=== PATIENT | male | born 1970 | race Caucasian/White ===

== ENCOUNTER 2017-05-28 22:18 | Emergency (ER) | payer BC ==
[2017-05-28 22:32] VITALS: BP 163/110
[2017-05-28] MEDS ORDERED: Sodium Chloride 0.9% 1,000 ML IV ONE (23:02)
[2017-05-28] MEDS ORDERED: Ondansetron 4 MG/2 ML SDV IVPUSH ONE (23:02)
[2017-05-28] MEDS ORDERED: Haloperidol Lactate 5 MG/ML SDV IM ONE (23:02)
[2017-05-28] MEDS ORDERED: diphenhydrAMINE 50 MG/ML SDV IVPUSH ONE (23:02)
--- NOTE | 2017-05-29 00:14 | EDM.PDOC ---
ED HPI GENERAL MEDICAL PROBLEM - General Chief Complaint: Headache Stated Complaint: MIGRAINE Time Seen by Provider: 05/28/17 22:35 Source of Information: Reports: Patient, RN Notes Reviewed History Limitations: Reports: No Limitations - History of Present Illness INITIAL COMMENTS - FREE TEXT/NARRATIVE: The patient states that he developed a headache, felt primarily at the right- sided base of his posterior skull, this morning. It is sharp in character. He has had nausea and dry heaves. No visual changes, but he does have photophobia. No phonophobia. No neurologic changes, such as tingling, numbness, weakness, or speech difficulty. The patient reports that he has had neck pain for years, and feels that the neck pain is somehow triggering his headache. The patient reports similar headaches in the past, perhaps 4 or 5 over the past 6 years. He has not been prescribed any long-term treatments, and did not attempt any home remedies or treatments today. He states that he has been expressing symptoms of lightheadedness and a tingling face for more than 2 months. His PCP, Ebony Garcia, felt that he was suffering from anxiety, therefore prescribed Lexapro a couple of months ago, but he only started taking it yesterday. A MRI/MRA of the head a few weeks ago was negative, according to the patient. Headache Pain Score (Numeric/FACES): 9 - Related Data Allergies Allergy/AdvReac Type Severity Reaction Status Date / Time grain dust Allergy Sneezing Uncoded 05/28/17 22:27 seasonal Allergy Sneezing Uncoded 05/28/17 22:27 Home Meds: Home Meds Omeprazole 40 mg PO DAILY 01/06/16 [History] Escitalopram [Lexapro] 10 mg PO DAILY 05/28/17 [History] Rizatriptan Benzoate [Rizatriptan] 10 mg PO Q2H PRN #3 tab.rapdis 05/29/17 [Rx] Past Medical History Gastrointestinal History: Reports: GERD, Irritable Bowel Syndrome (chronic diarrhea) Musculoskeletal History: Reports: Neck Pain, Chronic Neurological History: Reports: Headaches, Chronic Psychiatric History: Reports: Anxiety, Depression - Past Surgical History HEENT Surgical History: Reports: Oral Surgery ([place] teeth extraction) Neurological Surgical History: Reports: Lumbar Spine (fusion) Social & Family History - Tobacco Use Smoking Status *Q: Current Every Day Smoker Tobacco Use Within Last Twelve Months: Other (See Below) (Chews 1 can/day x 40 years, now down to 1/3 can/day) Years of Tobacco use: 5 Packs/Tins Daily: 1 - Alcohol Use Alcohol Use History: Yes Alcohol Use Frequency: Socially - Recreational Drug Use Recreational Drug Use: No - Living Situation & Occupation Living situation: Reports: Single, Alone Occupation: Employed ([employer]) ED ROS GENERAL - Review of Systems Review Of Systems: See Below Constitutional: Reports: No Symptoms HEENT: Reports: No Symptoms Respiratory: Reports: No Symptoms Cardiovascular: Reports: No Symptoms Endocrine: Reports: No Symptoms GI/Abdominal: Reports: Diarrhea (chronic) : Reports: No Symptoms Musculoskeletal: Reports: No Symptoms Skin: Reports: No Symptoms Neurological: Reports: Dizziness (lightheadedness) Psychiatric: Reports: No Symptoms Hematologic/Lymphatic: Reports: No Symptoms Immunologic: Reports: No Symptoms - Physical Exam Exam: See Below Exam Limited By: No Limitations General Appearance: Alert, WD/WN, Mild Distress (appears uncomfortable) Eye Exam: Bilateral Eye: EOMI, Normal Inspection, PERRL Ears: Normal External Exam, Hearing Grossly Normal Nose: Normal Inspection, No Blood Throat/Mouth: Normal Inspection, Normal Lips, Normal Voice, No Airway Compromise Head Exam: Atraumatic, Normocephalic Neck: Normal Inspection, Full Range of Motion, Limited Range of Motion Respiratory/Chest: No Respiratory Distress, Lungs Clear, Normal Breath Sounds, No Accessory Muscle Use Cardiovascular: Normal Peripheral Pulses, Regular Rate, Rhythm, No Gallop, No JVD, No Murmur, No Rub GI/Abdominal: Normal Bowel Sounds, Soft, Non-Tender, No Organomegaly, No Distention, No Abnormal Bruit, No Mass (Male) Exam: Deferred Rectal (Males) Exam: Deferred Neuro Exam (Abbreviated): Alert, Oriented, CN II-XII Intact, Normal Cognition, No Motor/Sensory Deficits Back Exam: Normal Inspection, Full Range of Motion, NT Extremities: Normal Inspection, Normal Range of Motion, No Pedal Edema, Normal Capillary Refill Psychiatric: Normal Affect Skin Exam: Warm, Dry, Intact, Normal Color, No Rash Course - Vital Signs Last Recorded V/S: Last Vital Signs Temp 36.1 C 05/28/17 22:30 Pulse 70 05/28/17 22:30 Resp 16 05/28/17 22:30 BP 163/110 H 05/28/17 22:30 Pulse Ox 97 05/28/17 22:30 - Orders/Labs/Meds Meds: Medications Discontinued Medications Generic Name Dose Route Start Last Admin Trade Name Irais PRN Reason Stop Dose Admin Diphenhydramine HCl 50 mg 05/28/17 23:02 05/28/17 23:16 Benadryl IVPUSH 05/28/17 23:03 50 mg ONETIME ONE Administration Haloperidol Lactate 5 mg 05/28/17 23:02 05/28/17 23:29 Haldol IM 05/28/17 23:03 5 mg ONETIME ONE Administration Sodium Chloride 1,000 mls @ 999 mls/hr 05/28/17 23:02 05/28/17 23:14 Normal Saline IV 05/29/17 00:02 999 mls/hr ONETIME ONE Administration Ondansetron HCl 4 mg 05/28/17 23:02 05/28/17 23:14 Zofran IVPUSH 05/28/17 23:03 4 mg ONETIME ONE Administration - Re-Assessments/Exams Free Text/Narrative Re-Assessment/Exam: 05/29/17 00:07 The patient states that his headache has significantly improved following IM Haldol, down to a "4" from a "9". This strongly suggests that his headache was migrainous in etiology. I will discharge him home with an e-prescription for Maxalt. If this medicine works, he can get an additional prescription per his PCP. In addition, he can discuss the option of migraine prophylactic treatment with his PCP. Departure - Departure Time of Disposition: 00:09 Disposition: Home, Self-Care 01 Condition: Good Clinical Impression: Migraine headache without aura - Discharge Information Prescriptions: Rizatriptan Benzoate [Rizatriptan] 10 mg PO Q2H PRN #3 tab.rapdis PRN Reason: Headache/Pain Instructions: Migraine Headache, [id number] Referrals: Ebony Garcia E [employer] PROJECT MANAGER [Primary Care Provider] - Forms: ED Department Discharge Additional Instructions: You were seen in the emergency room for neck pain and a headache, with nausea and dry heaves. You were treated with Haldol, a medicine that will treat migraine headaches, but have little effect on other types of headaches. Your headache improved significantly after Haldol, confirming that your headache was a migraine. Get plenty of rest tonight, and stay well hydrated. You have been prescribed the anti-migraine medicine Maxalt (rizatriptan). Dissolve 1 tablet in your mouth at the earliest sign of a migraine headache. You may repeat after 2 hours, to maximum of 3 tablets within a 24-hour period. If this medicine works for you, you can get additional prescriptions per your PCP, Ebony Garcia. Discuss with Ms. Garcia the option of migraine-preventive medication. If any other problems, please do not hesitate to return to the ER.
== END 2017-05-29 00:28 | disposition home or self-care (01) ==
LOC: JD.ED 22:18
DX: G43.009 Migraine without aura, not intractable, without status migrainosus (principal); F17.210 Nicotine dependence, cigarettes, uncomplicated; Z79.899 Other long term (current) drug therapy
CPT/HCPCS: 96361; 96372; 96374; 96375; 99283; J1200; J1630; J2405; J7040

== ENCOUNTER 2019-09-13 14:17 | Emergency (ER) | payer BC ==
[2019-09-13 14:29] VITALS: BP 157/91; PULSE 84
[2019-09-13] MEDS ORDERED: Aspirin 81 MG Tab.Chew PO ONE (14:49)
[2019-09-13] MEDS ORDERED: Sodium Chloride 0.9% 10 ML Syringe FLUSH PRN (14:49)
--- NOTE | 2019-09-13 15:29 | EDM.PDOC ---
ED HPI GENERAL MEDICAL PROBLEM - General Chief Complaint: Chest Pain Stated Complaint: CHEST PAIN Time Seen by Provider: 09/13/19 14:26 Source of Information: Reports: Patient, RN Notes Reviewed - History of Present Illness INITIAL COMMENTS - FREE TEXT/NARRATIVE: 49-year-old male comes in for evaluation of chest pain. He had onset of upper abdominal pain, lower chest discomfort about one hour ago at work. Describes this as a pressure and ache type sensation with slight radiation to the upper chest and neck. He states he did get somewhat weak lightheaded and dizzy and states he "also broke out in a sweat". The more severe dizziness and discomfort lasted about 10 minutes. Now on arrival to ED pain is almost gone. He does have history of hypertension and is on medication for that. He is not diabetic. He does smoke. Chest Pain Score (Numeric/FACES): 2 - Related Data Allergies Allergy/AdvReac Type Severity Reaction Status Date / Time grain dust Allergy Sneezing Uncoded 09/13/19 14:29 seasonal Allergy Sneezing Uncoded 09/13/19 14:29 Home Meds: Home Meds Omeprazole 40 mg PO DAILY 01/06/16 [History] Rizatriptan Benzoate [Rizatriptan] 10 mg PO Q2H PRN #3 tab.rapdis 05/29/17 [Rx] FLUoxetine HCl [Prozac] 20 mg PO DAILY 04/09/19 [History] Lisinopril 10 mg PO DAILY 04/09/19 [History] Past Medical History HEENT History: Reports: Other (See Below) Other HEENT History: wisdom tooth extraction Cardiovascular History: Reports: Hypertension Respiratory History: Reports: None Gastrointestinal History: Reports: GERD, Irritable Bowel Syndrome Other Gastrointestinal History: lower abdominal pain, epigastric discomfort, gastric ulcer Genitourinary History: Reports: None Musculoskeletal History: Reports: Neck Pain, Chronic Other Musculoskeletal History: chronic neck pain with RAY and bilat. arm numbness Neurological History: Reports: Headaches, Chronic, Migraines Other Neuro History: Currently has headache and failure of Toradol for any relief Psychiatric History: Reports: Anxiety, Depression Endocrine/Metabolic History: Reports: None Hematologic History: Reports: None Immunologic History: Reports: None Oncologic (Cancer) History: Reports: None Dermatologic History: Reports: None - Infectious Disease History Infectious Disease History: Reports: None - Past Surgical History Head Surgeries/Procedures: Reports: None HEENT Surgical History: Reports: Oral Surgery Neurological Surgical History: Reports: Lumbar Spine Social & Family History - Caffeine Use Caffeine Use: Reports: Soda - Living Situation & Occupation Living situation: Reports: Single, Alone Occupation: Employed ([employer]) ED ROS GENERAL - Review of Systems Review Of Systems: See Below Constitutional: Reports: Diaphoresis. Denies: Fever, Chills HEENT: Reports: No Symptoms (Gone) Respiratory: Denies: Shortness of Breath, Pleuritic Chest Pain Cardiovascular: Reports: Chest Pain (Gone), Lightheadedness GI/Abdominal: Reports: Abdominal Pain (Upper abdominal pressure discomfort, gone ). Denies: Nausea (Gone), Vomiting Musculoskeletal: Denies: Shoulder Pain, Arm Pain, Back Pain Neurological: Reports: Dizziness (Gone) ED EXAM, GENERAL - Physical Exam Exam: See Below General Appearance: Alert, No Apparent Distress Throat/Mouth: Normal Inspection, Normal Oropharynx Head: Atraumatic Neck: Supple Respiratory/Chest: No Respiratory Distress, Lungs Clear, Normal Breath Sounds Cardiovascular: Regular Rate, Rhythm GI/Abdominal: Soft, Non-Tender Back Exam: No: CVA Tenderness (L), CVA Tenderness (R) Extremities: Normal Inspection, Normal Range of Motion Neurological: Alert, Oriented, No Motor/Sensory Deficits Skin Exam: Warm, Dry, Normal Color EKG INTERPRETATION EKG Date: 09/13/19 Rhythm: Other (Normal sinus rhythm, multiple PACs noted at time of EKG) Rate (Beats/Min): 70 P-Wave: Present QRS: Normal ST-T: Normal QT: Normal Course - Vital Signs Last Recorded V/S: Last Vital Signs Temp 98.5 F 09/13/19 14:26 Pulse 84 09/13/19 14:26 Resp 18 09/13/19 14:26 BP 157/91 H 09/13/19 14:26 Pulse Ox 100 09/13/19 14:26 - Orders/Labs/Meds Orders: Active Orders 24 hr Category Date Time Status EKG 12 Lead [EKG Documentation Completion] [RC] STAT Care 09/13/19 14:29 Active EKG 12 Lead [EKG Documentation Completion] [RC] STAT Care 09/13/19 14:49 Inactive Peripheral IV Care [RC] . DIRECTED Care 09/13/19 14:49 Active Chest 1V Frontal [CR] Stat Exams 09/13/19 14:49 Taken Sodium Chloride 0.9% [Saline Flush] Med 09/13/19 14:49 Active 10 ml FLUSH ASDIRECTED PRN Peripheral IV Insertion Adult [OM.PC] Stat Oth 09/13/19 14:49 Ordered Medication Orders Sodium Chloride (Saline Flush) 10 ml FLUSH ASDIRECTED PRN PRN Reason: Keep Vein Open Last Admin: 09/13/19 14:59 Dose: 10 ml Labs: Laboratory Tests 09/13/19 09/13/19 09/13/19 Range/Units 15:00 15:00 17:03 WBC 11.26 H (4.23-9.07) K/mm3 RBC 4.88 (4.63-6.08) M/mm3 Hgb 15.0 (13.7-17.5) gm/dl Hct 43.5 (40.1-51.0) % MCV 89.1 (79.0-92.2) fl MCH 30.7 (25.7-32.2) pg MCHC 34.5 (32.2-35.5) g/dl RDW Std Deviation 44.5 H (35.1-43.9) fL Plt Count 326 D (163-337) K/mm3 MPV 9.1 L (9.4-12.3) fl Neut % (Auto) 76.0 H (34.0-67.9) % Lymph % (Auto) 18.6 L (21.8-53.1) % [place] % (Auto) 5.0 L (5.3-12.2) % Eos % (Auto) 0.3 L (0.8-7.0) Baso % (Auto) 0.0 L (0.1-1.2) % Neut # (Auto) 8.57 H (1.78-5.38) K/mm3 Lymph # (Auto) 2.09 (1.32-3.57) K/mm3 [place] # (Auto) 0.56 (0.30-0.82) K/mm3 Eos # (Auto) 0.03 L (0.04-0.54) K/mm3 Baso # (Auto) 0.00 L (0.01-0.08) K/mm3 Manual Slide Review Normal smear Sodium 136 (136-145) mEq/L Potassium 3.5 (3.5-5.1) mEq/L Chloride 101 (98-107) mEq/L Carbon Dioxide 24 (21-32) mEq/L Anion Gap 14.5 (5-15) BUN 13 (7-18) mg/dL Creatinine 1.0 (0.7-1.3) mg/dL Est Cr Clr Drug Dosing 81.71 mL/min Estimated GFR (MDRD) > 60 (>60) mL/min BUN/Creatinine Ratio 13.0 L (14-18) Glucose 118 H (74-106) mg/dL Calcium 8.9 (8.5-10.1) mg/dL Total Bilirubin 0.3 (0.2-1.0) mg/dL AST 16 (15-37) U/L ALT 26 (16-63) U/L Alkaline Phosphatase 73 (46-116) U/L Troponin I < 0.017 < 0.017 (0.00-0.056) ng/mL Total Protein 7.5 (6.4-8.2) g/dl Albumin 4.1 (3.4-5.0) g/dl Globulin 3.4 gm/dL Albumin/Globulin Ratio 1.2 (1-2) Meds: Medications Generic Name Dose Route Start Last Admin Trade Name Freq PRN Reason Stop Dose Admin Sodium Chloride 10 ml 09/13/19 14:49 09/13/19 14:59 Saline Flush FLUSH 10 ml ASDIRECTED PRN Administration Keep Vein Open Discontinued Medications Generic Name Dose Route Start Last Admin Trade Name Freq PRN Reason Stop Dose Admin Aspirin 324 mg 09/13/19 14:49 09/13/19 14:59 Aspirin PO 09/13/19 14:50 324 mg ONETIME ONE Administration - Re-Assessments/Exams Free Text/Narrative Re-Assessment/Exam: 09/13/19 16:14. Chest x-ray normal, EKG relatively normal with a few PACs noted , PACs also present on monitor at time of initial exam. Troponin has come back normal. Other labs relatively normal. He is resting very comfortably at this time. You have repeat troponin in about one half hour. Patient is comfortable and in agreement with that plan. Departure - Departure Time of Disposition: 18:08 Disposition: Home, Self-Care 01 Condition: Fair Clinical Impression: Atypical chest pain, GERD (gastroesophageal reflux disease) Referrals: Ebony Garcia, [employer] [Primary Care Provider] - Forms: ED Department Discharge Additional Instructions: Avoid spicy foods for now or anything else that might potentially upset her stomach. Continue omeprazole as previously prescribed. Antacids such as Maalox or Mylanta if needed for severe discomfort or spasm such as what you experience today. See a clinic provider in about 7-10 days for a complete physical. Return to ED as needed if symptoms worsening in any way. Sepsis Event Note - Evaluation Sepsis Screening Result: No Definite Risk - Focused Exam Vital Signs: Vital Signs Temp Pulse Resp BP Pulse Ox 09/13/19 14:26 98.5 F 84 18 157/91 H 100 Date Exam was Performed: 09/13/19 Time Exam was Performed: 18:08 - My Orders Last 24 Hours: My Active Orders 09/13/19 14:29 EKG 12 Lead [EKG Documentation Completion] [RC] STAT 09/13/19 14:49 EKG 12 Lead [EKG Documentation Completion] [RC] STAT Peripheral IV Care [RC] . DIRECTED Chest 1V Frontal [CR] Stat Sodium Chloride 0.9% [Saline Flush] 10 ml FLUSH ASDIRECTED PRN Peripheral IV Insertion Adult [OM.PC] Stat - Assessment/Plan Last 24 Hours: My Active Orders 09/13/19 14:29 EKG 12 Lead [EKG Documentation Completion] [RC] STAT 09/13/19 14:49 EKG 12 Lead [EKG Documentation Completion] [RC] STAT Peripheral IV Care [RC] . DIRECTED Chest 1V Frontal [CR] Stat Sodium Chloride 0.9% [Saline Flush] 10 ml FLUSH ASDIRECTED PRN Peripheral IV Insertion Adult [OM.PC] Stat
--- NOTE | 2019-09-14 07:36 | CR ---
Chest: Portable view of the chest was obtained. Comparison: Prior chest x-ray of 07/06/18. Heart size is normal. Tortuous thoracic aorta is seen. Minimal left basilar atelectasis is noted. Lungs otherwise are clear. Bony structures are grossly intact. Impression: 1. Nothing acute is appreciated on portable chest x-ray. Diagnostic code #2 This report was dictated in [place] Standard Time
== END 2019-09-13 18:21 | disposition home or self-care (01) ==
LOC: JD.ED 14:17
DX: R07.89 Other chest pain (principal); K21.9 Gastro-esophageal reflux disease without esophagitis; I10 Essential (primary) hypertension; F17.200 Nicotine dependence, unspecified, uncomplicated; Z79.899 Other long term (current) drug therapy; Z91.09 Other allergy status, other than to drugs and biological substances; Z98.890 Other specified postprocedural states
CPT/HCPCS: 36415; 71045; 80053; 84484; 85025; 93005; 99285; A9270; 93010; 99283

== ENCOUNTER 2019-10-25 10:35 | Day surgery (SDC) | payer BC ==
[~2019-10-25 10:35] MED LIST: Lactated Ringers 1,000 ML IV SCH; Lidocaine 1%/Sod Bicarbonate in NS 8.4% 1 ML Syringe IDERM SCH; Sodium Chloride 0.9% 10 ML Syringe FLUSH PRN
[2019-10-25] MEDS ORDERED: Albuterol 0.083% 2.5 MG/3 ML Neb Soln NEB SCH (11:45)
--- NOTE | 2019-10-25 12:06 | PCM.PREANE ---
Preanesthetic Assessment - Procedure Proposed Procedure: EGD - Anesthesia/Transfusion/Family Hx Anesthesia History: Prior Anesthesia Without Reaction Family History of Anesthesia Reaction: No - Review of Systems General: No Symptoms Pulmonary: Cough (Chronic, occasional productive. Smoker 1 ppd. ) Cardiovascular: No Symptoms (Hypertension) Gastrointestinal: Decreased Appetite, Other (GERD, IBS) Neurological: Pre-Existing Deficit (Chronic neck pain, has had steroid injection to his cervical spine for relief. Good ROM. ) Other: Reports: Neck Pain, Depression, Anxiety - Physical Assessment NPO Status Date: 10/25/19 NPO Status Time: 19:00 Vital Signs: Last Vital Signs Temp 36.2 C 10/25/19 11:15 Pulse 63 10/25/19 11:15 Resp 16 10/25/19 11:15 BP 128/89 10/25/19 11:15 Pulse Ox 99 10/25/19 11:53 Weight: 69.5 kg ASA Class: 2 Mental Status: Alert & Oriented x3 Airway Class: Mallampati = 2 Dentition: Reports: Caries Thyro-Mental Finger Breadths: 3 Mouth Opening Finger Breadths: 3 ROM/Head Extension: Full Lungs: Clear to Auscultation, Normal Respiratory Effort, Decreased Breath Sounds Cardiovascular: Regular Rate, Regular Rhythm - Allergies Allergies/Adverse Reactions: Allergies Allergy/AdvReac Type Severity Reaction Status Date / Time pollen extracts Allergy Sneezing Verified 10/24/19 13:16 dander Allergy Sneezing Uncoded 10/24/19 13:16 grain dust Allergy Sneezing Uncoded 10/24/19 13:16 - Anesthesia Plan Pre-Op Medication Ordered: Other (Albuterol Nebulizer Treatment) - Acknowledgements Anesthesia Type Planned: MAC Pt an Appropriate Candidate for the Planned Anesthesia: Yes Alternatives and Risks of Anesthesia Discussed w Pt/Guardian: Yes Pt/Guardian Understands and Agrees with Anesthesia Plan: Yes PreAnesthesia Questionnaire HEENT History: Reports: Allergic Rhinitis, Other (See Below) Other HEENT History: post nasal drip, oral cavity abrasion Cardiovascular History: Reports: Hypertension, Other (See Below) Other Cardiovascular History: atypical chest pain, irregular heart beat, pericarditis Respiratory History: Reports: Bronchitis, Recurrent, Pneumonia, Recurrent, Sleep Apnea, Other (See Below) Other Respiratory History: URI, cough, shortness of breath Gastrointestinal History: Reports: Gastritis, GERD, Helicobacter Pylori, Irritable Bowel Syndrome Other Gastrointestinal History: lower abdominal pain, epigastric discomfort, gastric ulcer Genitourinary History: Reports: Other (See Below) Other Genitourinary History: erectile dysfunction WELFARE ADVISER History: Reports: None Musculoskeletal History: Reports: Back Pain, Chronic, Neck Pain, Chronic Other Musculoskeletal History: lumbar strain, trapezius strain, back spasms, knee surgery, low back surgery Neurological History: Reports: Headaches, Chronic, Migraines Other Neuro History: Currently has headache and failure of Toradol for any relief Psychiatric History: Reports: Anxiety, Depression Endocrine/Metabolic History: Reports: None Hematologic History: Reports: None Immunologic History: Reports: None Oncologic (Cancer) History: Reports: None Dermatologic History: Reports: None - Infectious Disease History Infectious Disease History: Reports: None - Past Surgical History Head Surgeries/Procedures: Reports: None HEENT Surgical History: Reports: Oral Surgery Cardiovascular Surgical History: Reports: None Respiratory Surgical History: Reports: None GI Surgical History: Reports: None Female Surgical History: Reports: None Male Surgical History: Reports: None Endocrine Surgical History: Reports: None Neurological Surgical History: Reports: Lumbar Spine Musculoskeletal Surgical History: Reports: Other (See Below) Other Musculoskeletal Surgeries/Procedures:: low back surgery Oncologic Surgical History: Reports: None Dermatological Surgical History: Reports: None - SUBSTANCE USE Smoking Status *Q: Current Every Day Smoker Recreational Drug Use History: No - HOME MEDS Home Medications: Home Meds Omeprazole 40 mg PO DAILY 01/06/16 [History] Rizatriptan Benzoate [Rizatriptan] 10 mg PO Q2H PRN #3 tab.rapdis 05/29/17 [Rx] Dicyclomine [Bentyl] 20 mg PO Q6H PRN 10/24/19 [History] FLUoxetine HCl [Fluoxetine HCl] 40 mg PO DAILY 10/24/19 [History] Loperamide [Imodium] 2 mg PO ASDIRECTED PRN 10/24/19 [History] Methylphenidate HCl 10 mg PO BID 10/24/19 [History] Sucralfate [Carafate] 10 mg PO QID 10/24/19 [History] Tadalafil [Cialis] 10 mg PO Q72H PRN 10/24/19 [History] lisinopriL [Lisinopril] 20 mg PO DAILY 10/24/19 [History] - CURRENT (IN HOUSE) MEDS Current Meds: Current Medications Albuterol (Proventil Neb Soln) 2.5 mg NEB ONETIME MICA Stop: 10/25/19 18:00 Last Admin: 10/25/19 11:53 Dose: 2.5 mg Lactated Ringer's (Ringers, Lactated) 1,000 mls @ 125 mls/hr IV ASDIRECTED MICA Stop: 10/25/19 23:00 Lidocaine/Sodium Bicarbonate (Buffered Lidocaine 1% In Ns 8.4%) 0.25 ml IDERM ONETIME MICA Stop: 10/25/19 18:00 Sodium Chloride (Saline Flush) 10 ml FLUSH ASDIRECTED PRN PRN Reason: Keep Vein Open Stop: 10/25/19 18:00
[2019-10-25] MEDS ORDERED: Propofol 200 MG/20 ML SDV ONE (12:15)
[2019-10-25] MEDS ORDERED: Lidocaine 1% 4 ML ONE (12:15)
--- NOTE | 2019-10-25 12:39 | PCM.PRNOTE ---
- Free Text/Narrative Note: Date: 10/25/2019 Procedure: diagnostic esophagogastroduodenoscopy Endoscopist: Landon Trevino MD Findings: superficial streaky gastric erosions at the body of the stomach. Duodenum appeared normal. Esophagus appeared normal. Detailed Report: The patient was taken to the endoscopy suite and placed in left lateral decubitus position. Time out was performed and monitored sedation initiated. A bite-block was placed, and lubricated endoscope was inserted orally. The scope was advanced all the way to the second portion of the duodenum easily. The duodenal mucosa appeared normal. A biopsy of the second portion was obtained with forceps. The scope was then withdrawn into the stomach. The pylorus had some mild erythematous changes, and a sample biopsy of the antrum was obtained. Along the greater curvature at the level of the body of the stomach, there were scattered linear erythematous erosions of the gastric mucosa. A sample biopsy was obtained. No significant gastric ulcer disease was appreciated, the incisura appeared normal. On retroflexion of the scope, the fundus appeared normal, and there was no evidence of a hiatal hernia. No polyps or other lesions were identified. The scope was then withdrawn into the distal portion of the esophagus. The Z line appeared normal, a sample biopsy of the distal esophageal mucosa was obtained with forceps. The scope was then withdrawn and the hypopharynx was inspected; the area epiglottic folds appeared normal as did the vocal cords. The patient tolerated the procedure well. Landon Trevino MD General Surgery
--- NOTE | 2019-10-25 12:49 | PCM48HPAN ---
Post Anesthesia Note - EVALUATION WITHIN 48HRS OF ANESTHETIC Vital Signs in Normal Range: Yes Patient Participated in Evaluation: Yes Respiratory Function Stable: Yes Airway Patent: Yes Cardiovascular Function Stable: Yes Hydration Status Stable: Yes Pain Control Satisfactory: Yes Nausea and Vomiting Control Satisfactory: Yes Mental Status Recovered: Yes Vital Signs: Last Vital Signs Temp 97.5 F 10/25/19 12:33 Pulse 78 10/25/19 12:33 Resp 16 10/25/19 12:33 BP 106/60 10/25/19 12:33 Pulse Ox 94 L 10/25/19 12:33
[2019-10-25 14:27] VITALS: BP 121/82; PULSE 62
== END 2019-10-25 13:25 | disposition home or self-care (01) ==
LOC: JD.SDS 10:35
PROVIDERS: ATTEND Surgery
DX: K25.9 Gastric ulcer, unspecified as acute or chronic, without hemorrhage or perforation (principal); F17.210 Nicotine dependence, cigarettes, uncomplicated; I10 Essential (primary) hypertension; K21.9 Gastro-esophageal reflux disease without esophagitis; G89.29 Other chronic pain; F41.8 Other specified anxiety disorders; Z79.899 Other long term (current) drug therapy; Z87.19 Personal history of other diseases of the digestive system; Z88.8 Allergy status to other drugs, medicaments and biological substances; Z91.048 Other nonmedicinal substance allergy status
CPT/HCPCS: 43239; 94640; J2001; J2704; J7120; 00731

== ENCOUNTER 2020-11-12 05:56 | Emergency (ER) | payer BC ==
[2020-11-12 06:10] VITALS: BP 149/109; PULSE 76
[2020-11-12] MEDS ORDERED: HYDROmorphone 1 MG/ML Syringe IVPUSH ONE (06:26)
[2020-11-12] MEDS ORDERED: Sodium Chloride 0.9% 500 ML IV ONE (06:26)
[2020-11-12] MEDS ORDERED: Ondansetron 4 MG/2 ML SDV IVPUSH ONE (06:26)
--- NOTE | 2020-11-12 06:31 | EDM.PDOC ---
<Kin Pink - Last Filed: 11/12/20 07:56> ED HPI GENERAL MEDICAL PROBLEM - General Chief Complaint: Flank Pain Stated Complaint: RIGHT SIDE PAIN THAT GOES INTO HIS BACK Time Seen by Provider: 11/12/20 06:09 Source of Information: Reports: Patient History Limitations: Reports: No Limitations - History of Present Illness INITIAL COMMENTS - FREE TEXT/NARRATIVE: Mr. Galvan is a very pleasant 50-year-old gentleman with chronic neck and back pain, who now presents the ED stating that he developed right upper quadrant abdominal pain last night, that started radiating to his upper right flank area later last night before he went to bed. He states that the pain waxes and wanes, going from a "pain" to "stabbing". He feels better if he is standing, worse if he lies down. No associated chest pain, dyspnea, cough, nausea, vomiting, diarrhea, or urinary symptoms. No recent fever. No recent injury. The patient states that he took some Advil last night, which did not help. Because of the patient's chronic neck and back pain, he is unsure if he has had this same sort of pain in the past. Here in the ED, the patient's initial BP is found to be mildly elevated at 149/109, otherwise, he is hemodynamically stable, afebrile, saturating 100% on room air. Prior to last night, the patient denies having a recent fever, chills, sore throat, ear pain, nasal or sinus congestion, cough, dyspnea, chest pain, palpitations, nausea, vomiting, constipation, diarrhea, abdominal pain, urinary symptoms, recent weight gain or weight loss, recent bloody bowel movements or black bowel movements, recent joint aches, headaches, or rashes. The patient's PCP is Ebony Garcia NP. He did not receive an influenza vaccine this season, and declined an offer to get one here in the ED. Right Upper Back Pain Score (Numeric/FACES): 7 - Related Data Allergies Allergy/AdvReac Type Severity Reaction Status Date / Time pollen extracts Allergy Sneezing Verified 10/24/19 13:16 dander Allergy Sneezing Uncoded 10/24/19 13:16 grain dust Allergy Sneezing Uncoded 10/24/19 13:16 Home Meds: Home Meds Omeprazole 40 mg PO DAILY 01/06/16 [History] Rizatriptan Benzoate [Rizatriptan] 10 mg PO Q2H PRN #3 tab.rapdis 05/29/17 [Rx] Dicyclomine [Bentyl] 20 mg PO Q6H PRN 10/24/19 [History] FLUoxetine HCl [Fluoxetine HCl] 40 mg PO DAILY 10/24/19 [History] Loperamide [Imodium] 2 mg PO ASDIRECTED PRN 10/24/19 [History] Methylphenidate HCl 10 mg PO BID 10/24/19 [History] Sucralfate [Carafate] 10 mg PO QID 10/24/19 [History] lisinopriL [Lisinopril] 20 mg PO DAILY 10/24/19 [History] tadalafiL [Cialis] 10 mg PO Q72H PRN 10/24/19 [History] Hydrocodone/Acetaminophen [Hydrocodone-Acetamin 5-325 mg] 1 - 2 each PO Q6HR PRN #10 tablet 11/12/20 [Rx] Past Medical History HEENT History: Reports: Allergic Rhinitis Cardiovascular History: Reports: High Cholesterol, Hypertension Respiratory History: Reports: Sleep Apnea (untreated) Gastrointestinal History: Reports: GERD, Irritable Bowel Syndrome, PUD Musculoskeletal History: Reports: Back Pain, Chronic, Neck Pain, Chronic Psychiatric History: Reports: Anxiety, Depression - Past Surgical History HEENT Surgical History: Reports: Oral Surgery (dental extractions) GI Surgical History: Reports: Colonoscopy (x 3), EGD (x 1 or 2) Neurological Surgical History: Reports: Lumbar Spine (fusion) Musculoskeletal Surgical History: Reports: Arthroscopic Knee (right) Social & Family History - Tobacco Use Tobacco Use Status *Q: Current Every Day Tobacco User Tobacco Use Within Last Twelve Months: Smokeless Tobacco (Chews 1/3 can/day since 1985) Years of Tobacco use: 9 Packs/Tins Daily: 1 Tobacco Use Comment: Started smoking 2011 - Caffeine Use Caffeine Use: Reports: Soda - Alcohol Use Alcohol Use History: Yes Alcohol Use Frequency: Socially - Recreational Drug Use Recreational Drug Use: No - Living Situation & Occupation Living situation: Reports: Single, Alone Occupation: Employed ([employer]) ED ROS GENERAL - Review of Systems Review Of Systems: Comprehensive ROS is negative, except as noted in HPI. ED EXAM, GENERAL - Physical Exam Exam: See Below Exam Limited By: No Limitations General Appearance: Alert, WD/WN, Mild Distress (appears uncomfortable) Eye Exam: Bilateral Eye: EOMI, Normal Inspection Ears: Normal External Exam, Hearing Grossly Normal Nose: Normal Inspection Throat/Mouth: Normal Inspection, Normal Lips, Normal Voice, No Airway Compromise Head: Atraumatic, Normocephalic Neck: Normal Inspection, Full Range of Motion Respiratory/Chest: No Respiratory Distress, Lungs Clear, Normal Breath Sounds, No Accessory Muscle Use. No: Decreased Breath Sounds, Crackles, Rhonchi, Wheezing, Pleural Rub Cardiovascular: Normal Peripheral Pulses, Regular Rate, Rhythm, No Edema, No Gallop, No JVD, No Murmur, No Rub Peripheral Pulses: 3+: Radial (L), Radial (R) GI/Abdominal: Normal Bowel Sounds, Soft, No Organomegaly, No Distention, No Abnormal Bruit, No Mass, Tender (minimal, to the RUQ and epigastrium, but completely nontender elsewhere) Back Exam: Normal Inspection, Full Range of Motion. No: CVA Tenderness (L), CVA Tenderness (R), Muscle Spasm, Paraspinal Tenderness, Vertebral Tenderness Extremities: Normal Inspection, Normal Range of Motion, No Pedal Edema, Normal Capillary Refill Neurological: Alert, Oriented, Normal Cognition, No Motor/Sensory Deficits Psychiatric: Normal Affect Skin Exam: Warm, Dry, Intact, Normal Color, No Rash Course - Re-Assessments/Exams Free Text/Narrative Re-Assessment/Exam: 11/12/20 06:27 As above, the patient developed right upper quadrant abdominal pain last night, which migrated to his upper right flank area later last night. His pain has been waxing and waning, and is made better if he stands, worse if he is supine. It is not really reproducible with palpation of his abdomen or back, and he has no CVA tenderness. The etiology of his symptoms is unclear, therefore I have ordered a work-up that includes several blood tests, a urinalysis, and a chest x-ray. In the meantime, the patient will be given some IV Dilaudid, IV Zofran, and IV fluid. 11/12/20 07:31 Two-view chest radiograph appears to be grossly normal. The cardiac silhouette is within normal limits. No pulmonary vascular congestion. No pleural effusions. No focal infiltrate. No pneumothorax. Formal read per the Radiologist pending. The patient's CBC is unremarkable. His CMP is remarkable for an anion gap slightly elevated at 15.8, but with a bicarbonate normal at 25. He has slight hyperglycemia of 110, with the remainder of his CMP being unremarkable. His lipase level is within normal limits at 79. His D-dimer is undetectably low. The patient has not yet provided a urine sample for a urinalysis. 11/12/20 07:56 The patient has still not provided a urine sample for urinalysis. Case discussed with Dr. Das, and care of the patient turned over to him at this time, for change of shift. Departure - Departure Disposition: Home, Self-Care 01 Clinical Impression: Chest wall muscle strain Qualifiers: Encounter type: initial encounter Qualified Code(s): S29.011A - Strain of muscle and tendon of front wall of thorax, initial encounter - Discharge Information Prescriptions: Hydrocodone/Acetaminophen [Hydrocodone-Acetamin 5-325 mg] 1 - 2 each PO Q6HR PRN #10 tablet PRN Reason: Pain Referrals: Ebony Garcia, [employer] [Primary Care Provider] - 1 Week Forms: ED Department Discharge Additional Instructions: Go home and rest. Take motrin or aleve for pain. If that does not help, try the hydrocodone. Follow up with Ebony Garcia within a week. Please return if you are worse. Sepsis Event Note (ED) - Evaluation Sepsis Screening Result: No Definite Risk <Joesph Das - Last Filed: 11/12/20 09:06> Course - Vital Signs Last Recorded V/S: Last Vital Signs Temp 97.6 F 11/12/20 06:08 Pulse 76 11/12/20 06:08 Resp 15 11/12/20 06:08 BP 149/109 H 11/12/20 06:08 Pulse Ox 100 11/12/20 06:08 - Orders/Labs/Meds Orders: Active Orders 24 hr Category Date Time Status UA W/MICROSCOPIC [URIN] Stat Lab 11/12/20 06:24 Ordered Labs: Laboratory Tests 11/12/20 11/12/20 11/12/20 Range/Units 06:10 06:10 06:10 WBC 6.59 (4.23-9.07) K/mm3 RBC 4.58 L (4.63-6.08) M/mm3 Hgb 14.1 D (13.7-17.5) gm/dl Hct 40.9 (40.1-51.0) % MCV 89.3 (79.0-92.2) fl MCH 30.8 (25.7-32.2) pg MCHC 34.5 (32.2-35.5) g/dl RDW Std Deviation 46.2 H (35.1-43.9) fL Plt Count 307 (163-337) K/mm3 MPV 9.0 L (9.4-12.3) fl Neutrophils % (Manual) 39 L (40-60) % Band Neutrophils % 0 (0-10) % Lymphocytes % (Manual) 46 H (20-40) % Atypical Lymphs % 0 % Monocytes % (Manual) 14 H (2-10) % Eosinophils % (Manual) 0 L (0.8-7.0) % Basophils % (Manual) 1 (0.2-1.2) Platelet Estimate Adequate RBC Morph Comment Normal D-Dimer, Quantitative < 0.19 L (0.19-0.50) mg/L Sodium 140 (136-145) mEq/L Potassium 3.8 (3.5-5.1) mEq/L Chloride 103 (98-107) mEq/L Carbon Dioxide 25 (21-32) mEq/L Anion Gap 15.8 H (5-15) BUN 15 (7-18) mg/dL Creatinine 0.9 (0.7-1.3) mg/dL Est Cr Clr Drug Dosing 89.77 mL/min Estimated GFR (MDRD) > 60 (>60) mL/min BUN/Creatinine Ratio 16.7 (14-18) Glucose 110 H (74-106) mg/dL Calcium 8.9 (8.5-10.1) mg/dL Total Bilirubin 0.4 (0.2-1.0) mg/dL AST 28 (15-37) U/L ALT 38 (16-63) U/L Alkaline Phosphatase 92 (46-116) U/L Total Protein 6.8 (6.4-8.2) g/dl Albumin 3.7 (3.4-5.0) g/dl Globulin 3.1 gm/dL Albumin/Globulin Ratio 1.2 (1-2) Lipase 79 (73-393) U/L Meds: Medications Discontinued Medications Generic Name Dose Route Start Last Admin Trade Name Irais PRN Reason Stop Dose Admin Hydromorphone HCl 1 mg 11/12/20 06:26 11/12/20 06:41 Hydromorphone 1 Mg/Ml Syringe IVPUSH 11/12/20 06:27 1 mg ONETIME ONE Administration Sodium Chloride 500 mls @ 1,000 mls/hr 11/12/20 06:26 11/12/20 06:40 Normal Saline IV 11/12/20 06:55 1,000 mls/hr .BOLUS ONE Administration Ondansetron HCl 4 mg 11/12/20 06:26 11/12/20 06:40 Ondansetron 4 Mg/2 Ml Sdv IVPUSH 11/12/20 06:27 4 mg ONETIME ONE Administration - Re-Assessments/Exams Free Text/Narrative Re-Assessment/Exam: 11/12/20 09:[address] Pink. I decided to to a CT scan and it showed small nonobstructing calculus within both kidneys. No ureteral dilatation or ureteral stone is seen. Slight scarring within the right middle lobe and lingula believed to be incidental. No acute abnormality is otherwise seen. It appears this pain is musculoskeletal. I will discharge him and give him something for pain. Departure - Departure Time of Disposition: 09:05 Condition: Good - Discharge Information *PRESCRIPTION DRUG MONITORING PROGRAM REVIEWED*: Not Applicable *COPY OF PRESCRIPTION DRUG MONITORING REPORT IN PATIENT OC: Not Applicable Sepsis Event Note (ED) - Focused Exam Vital Signs: Vital Signs Temp Pulse Resp BP Pulse Ox 11/12/20 06:08 97.6 F 76 15 149/109 H 100
--- NOTE | 2020-11-12 07:33 | CR ---
Chest: PA and lateral views of the chest were obtained. Comparison: Prior chest x-ray of 09/13/19. Heart size and mediastinum are within normal limits. Slight areas of increased density are noted within the left lung base most likely representing mild area of atelectasis versus minimal pneumonia. Lungs otherwise are clear. Slight degenerative change is scattered within the spine with minimal scoliosis. Impression: 1. Increased density within the left lung base either due to atelectasis or small area of pneumonia if patient has infectious symptoms. 2. Other findings which are believed to be incidental as noted above. Diagnostic code #3
--- NOTE | 2020-11-12 08:42 | CT ---
CT abdomen and pelvis Technique: Multiple axial sections were obtained from above the dome of the diaphragm inferiorly through the pubic symphysis. Intravenous and oral contrast was not utilized. Study has been performed as a ureteral stone protocol. Comparison: Prior CT abdomen and pelvis study of 02/07/17. Findings: Small calcification is seen within each kidney. These measure less than 5 mm. No ureteral dilatation or ureteral calculi are seen. Slight scarring is noted within the right middle lobe and lingula of the lung. Lung markings are mildly increased within both lung bases most likely due to atelectasis. Noncontrast appearance of the liver shows no focal abnormality. Spleen size is normal. Adrenal glands show no nodule. Pancreas shows no abnormality. Gallbladder contains no calcified gallstones. Abdominal aorta shows no aneurysm. No retroperitoneal adenopathy or mesenteric abnormalities are seen. Appendix is seen which is normal in size. No pelvic mass or adenopathy is identified. Mild increased stool is noted within the colon. No free fluid or inflammatory change is seen. Bone window settings were reviewed which show trans-pedicle screws at L3-4 and L4-5. Lesser degenerative change is seen within other portions of the spine. Small fat-containing umbilical hernia is noted. Impression: 1. Small nonobstructing calculus within both kidneys. No ureteral dilatation or ureteral stone is seen. 2. Slight scarring within the right middle lobe and lingula and mild bibasilar atelectasis. 3. Mild increased stool within the colon. Other findings believed to be incidental as noted above. 4. No acute abnormality is otherwise seen. Diagnostic code #2
== END 2020-11-12 09:22 | disposition home or self-care (01) ==
LOC: JD.ED 05:56
DX: S29.011A Strain of muscle and tendon of front wall of thorax, initial encounter (principal); I10 Essential (primary) hypertension; K21.9 Gastro-esophageal reflux disease without esophagitis; Z79.899 Other long term (current) drug therapy; Z91.048 Other nonmedicinal substance allergy status; X58.XXXA Exposure to other specified factors, initial encounter
CPT/HCPCS: 36415; 71046; 74176; 80053; 83690; 85007; 85027; 85379; 96374; 96375; 99284; J1170; J2405; J7030; 99283

== ENCOUNTER 2021-08-03 04:33 | Emergency (ER) | payer BC ==
[2021-08-03 04:53] VITALS: BP 148/102; PULSE 85
--- NOTE | 2021-08-03 05:11 | EDM.PDOC ---
ED HPI GENERAL MEDICAL PROBLEM - General Chief Complaint: Neck Problem Stated Complaint: NECK PAIN Time Seen by Provider: 08/03/21 05:01 - History of Present Illness INITIAL COMMENTS - FREE TEXT/NARRATIVE: 51-year-old male presents the emergency room with neck pain. Patient has longstanding neck pain and is scheduled to have an MRI done later today. After the MRI he is scheduled to meet with his neurosurgeon tomorrow. Patient has had significant back problems in the past as well he has had back surgery in the past and has done fairly well following this. The pain is worse left side of the neck lateral aspect in the muscles going into the shoulder. He does not describe nervelike pain more of a muscle pain. The patient did take his Norflex last night. The patient does have intermittent chronic numbness into his hands but this pain is different. He has noticed increased muscle spasm on the left side of his neck over the last week or so. He has not had any increased weakness in his left arm and the intermittent numbness has been a chronic issue for him. He is not having any symptoms below his neck. He denies any breathing difficulty shortness of breath chest pain or chest pressure. Neck Pain Score (Numeric/FACES): 10 - Related Data Allergies Allergy/AdvReac Type Severity Reaction Status Date / Time pollen extracts Allergy Sneezing Verified 08/03/21 04:53 dander Allergy Sneezing Uncoded 10/24/19 13:16 grain dust Allergy Sneezing Uncoded 10/24/19 13:16 Home Meds: Home Meds Omeprazole 40 mg PO DAILY 01/06/16 [History] Rizatriptan Benzoate [Rizatriptan] 10 mg PO Q2H PRN #3 tab.rapdis 05/29/17 [Rx] Dicyclomine [Bentyl] 20 mg PO Q6H PRN 10/24/19 [History] FLUoxetine HCl [Fluoxetine HCl] 40 mg PO DAILY 10/24/19 [History] Loperamide [Imodium] 2 mg PO ASDIRECTED PRN 10/24/19 [History] Methylphenidate HCl 10 mg PO BID 10/24/19 [History] Sucralfate [Carafate] 10 mg PO QID 10/24/19 [History] lisinopriL [Lisinopril] 20 mg PO DAILY 03/04/20 [History] tadalafiL [Cialis] 10 mg PO Q72H PRN 10/24/19 [History] Hydrocodone/Acetaminophen [HYDROcodone-Acetaminophen 5-325 MG] 1 - 2 each PO Q6HR PRN #10 tablet 11/12/20 [Rx] Orphenadrine [Norflex] 100 mg PO BID PRN 08/03/21 [History] Past Medical History HEENT History: Reports: Allergic Rhinitis Other HEENT History: post nasal drip, oral cavity abrasion Cardiovascular History: Reports: High Cholesterol, Hypertension Other Cardiovascular History: atypical chest pain, irregular heart beat, pericarditis Respiratory History: Reports: Sleep Apnea Other Respiratory History: URI, cough, shortness of breath Gastrointestinal History: Reports: GERD, Irritable Bowel Syndrome, PUD Other Gastrointestinal History: lower abdominal pain, epigastric discomfort, gastric ulcer Genitourinary History: Reports: Other (See Below) Other Genitourinary History: erectile dysfunction [employer] History: Reports: None Musculoskeletal History: Reports: Back Pain, Chronic, Neck Pain, Chronic Other Musculoskeletal History: lumbar strain, trapezius strain, back spasms, knee surgery, low back surgery Neurological History: Reports: Headaches, Chronic, Migraines Other Neuro History: Currently has headache and failure of Toradol for any relief Psychiatric History: Reports: Anxiety, Depression Endocrine/Metabolic History: Reports: None Hematologic History: Reports: None Immunologic History: Reports: None Oncologic (Cancer) History: Reports: None Dermatologic History: Reports: None - Infectious Disease History Infectious Disease History: Reports: None - Past Surgical History Head Surgeries/Procedures: Reports: None HEENT Surgical History: Reports: Oral Surgery Cardiovascular Surgical History: Reports: None Respiratory Surgical History: Reports: None GI Surgical History: Reports: Colonoscopy, EGD Male Surgical History: Reports: None Endocrine Surgical History: Reports: None Neurological Surgical History: Reports: Lumbar Spine Musculoskeletal Surgical History: Reports: Arthroscopic Knee Other Musculoskeletal Surgeries/Procedures:: low back surgery Oncologic Surgical History: Reports: None Dermatological Surgical History: Reports: None Social & Family History - Tobacco Use Tobacco Use Status *Q: Current Every Day Tobacco User Years of Tobacco use: 8 Packs/Tins Daily: 1 - Caffeine Use Caffeine Use: Reports: Soda - Recreational Drug Use Recreational Drug Use: No - Living Situation & Occupation Living situation: Reports: Single, Alone Occupation: Employed ([employer]) ED ROS GENERAL - Review of Systems Review Of Systems: See Below Constitutional: Reports: No Symptoms HEENT: Reports: No Symptoms Respiratory: Reports: No Symptoms Cardiovascular: Reports: No Symptoms GI/Abdominal: Reports: No Symptoms : Reports: No Symptoms Musculoskeletal: Reports: Neck Pain Skin: Reports: No Symptoms Neurological: Reports: Other (See HPI) Psychiatric: Reports: No Symptoms ED EXAM, GENERAL - Physical Exam Exam: See Below Exam Limited By: No Limitations General Appearance: Moderate Distress (From the discomfort) Head: Atraumatic, Normocephalic Neck: No: Non-Tender, Full Range of Motion (He has limited range of motion due to the muscle tightness in the left side musculature and in the left paraspinous muscles), Tender Midline Respiratory/Chest: No Respiratory Distress, Lungs Clear, Normal Breath Sounds Cardiovascular: Regular Rate, Rhythm, No Edema, No Murmur Course - Vital Signs Last Recorded V/S: Last Vital Signs Temp 36.7 C 08/03/21 04:52 Pulse 85 08/03/21 04:52 Resp 20 08/03/21 04:52 BP 148/102 H 08/03/21 04:52 Pulse Ox 100 08/03/21 04:52 - Orders/Labs/Meds Orders: Active Orders 24 hr Category Date Time Status Orphenadrine [Norflex] Med 08/03/21 06:24 Once 100 mg PO ONETIME ONE Medication Orders Orphenadrine Citrate (Orphenadrine 100 Mg Tab.Er) 100 mg PO ONETIME ONE Stop: 08/03/21 06:25 Meds: Medications Generic Name Dose Route Start Last Admin Trade Name Freq PRN Reason Stop Dose Admin Orphenadrine Citrate 100 mg 08/03/21 06:24 Orphenadrine 100 Mg Tab.Er PO 08/03/21 06:25 ONETIME ONE Discontinued Medications Generic Name Dose Route Start Last Admin Trade Name Freq PRN Reason Stop Dose Admin Hydromorphone HCl 1 mg 08/03/21 05:20 08/03/21 05:42 Hydromorphone 1 Mg/Ml Syringe IM 08/03/21 05:21 1 mg ONETIME ONE Administration - Re-Assessments/Exams Free Text/Narrative Re-Assessment/Exam: 08/03/21 06:32 Patient was given a milligram of IM Dilaudid with some improvement. This was followed up with 100 mg of Norflex p.o. This is all I will give him today to hopefully get him through his MRI. He should follow up with his local regular healthcare provider for augmentation of his pain management if needed. Departure - Departure Time of Disposition: 06:39 Disposition: Home, Self-Care 01 Clinical Impression: Cervical paraspinous muscle spasm, Chronic neck pain - Discharge Information Referrals: Lorenzo Ibrahim NP [Primary Care Provider] - Forms: ED Department Discharge Additional Instructions: Return to the emergency room with any questions problems or concerning symptoms. Follow-up with your regular healthcare provider for adjustment of your medication management if needed. Do not drive today within 12 hours of getting medication here in the emergency room. And be sure to get a ride from the emergency room to get home and back for your MRI. Sepsis Event Note (ED) - Focused Exam Vital Signs: Vital Signs Temp Pulse Resp BP Pulse Ox 08/03/21 04:52 36.7 C 85 20 148/102 H 100 - My Orders Last 24 Hours: My Active Orders 08/03/21 06:24 Orphenadrine [Norflex] 100 mg PO ONETIME ONE - Assessment/Plan Last 24 Hours: My Active Orders 08/03/21 06:24 Orphenadrine [Norflex] 100 mg PO ONETIME ONE
[2021-08-03] MEDS ORDERED: HYDROmorphone 1 MG/ML Syringe IM ONE (05:20)
[2021-08-03] MEDS ORDERED: Orphenadrine 100 MG Tab.ER PO ONE (06:24)
== END 2021-08-03 06:45 | disposition home or self-care (01) ==
LOC: JD.ED 04:33
DX: M62.838 Other muscle spasm (principal); I10 Essential (primary) hypertension; K21.9 Gastro-esophageal reflux disease without esophagitis; Z72.0 Tobacco use; Z91.048 Other nonmedicinal substance allergy status; Z79.899 Other long term (current) drug therapy
CPT/HCPCS: 96372; 99283; A9270; J1170; 99284

== ENCOUNTER 2022-03-28 11:24 | Emergency (ER) | payer BC ==
[2022-03-28 12:30] VITALS: PULSE 74
[2022-03-28] MEDS ORDERED: Ondansetron 4 MG/2 ML SDV IVPUSH ONE (12:35)
[2022-03-28] MEDS ORDERED: Sodium Chloride 0.9% 1,000 ML IV SCH (12:45)
[2022-03-28] MEDS: Sodium Chloride 0.9% 10 ML Syringe FLUSH PRN ×2 (13:04→13:20)
[2022-03-28] MEDS ORDERED: Iopamidol 612 MG/ML 100 ML Bottle IVPUSH ONE (13:11)
[2022-03-28 13:35] LABS: ESTIMATED GFR 106 mL/min (>60)
[2022-03-28 15:12] VITALS: BP 134/84
== END 2022-03-28 15:12 | disposition home or self-care (01) ==
LOC: JD.ED 11:24
DX: R10.11 Right upper quadrant pain (principal); E78.00 Pure hypercholesterolemia, unspecified; I10 Essential (primary) hypertension; K21.9 Gastro-esophageal reflux disease without esophagitis; F17.210 Nicotine dependence, cigarettes, uncomplicated; Z91.048 Other nonmedicinal substance allergy status; Z79.899 Other long term (current) drug therapy
CPT/HCPCS: 36415; 74177; 80053; 81001; 83690; 85025; 86140; 96360; 99284; J3490; J7030; Q9967

== ENCOUNTER 2024-07-09 01:06 | Emergency (ER) | payer BC ==
[2024-07-09] MEDS: Acetaminophen 325 MG Tab PO ONE (01:58)
[2024-07-09] MEDS: Ketorolac 30 MG/ML SDV IVPUSH ONE (01:58)
[2024-07-09] MEDS: Sodium Chloride 0.9% 10 ML Syringe FLUSH PRN (01:58)
[2024-07-09] MEDS: HYDROmorphone 0.5 MG/0.5 ML Syringe IVPUSH ONE (03:49)
[2024-07-09 04:04] VITALS: BP 122/89; PULSE 82
== END 2024-07-09 03:30 | disposition home or self-care (01) ==
LOC: JD.ED 01:06
DX: N20.0 Calculus of kidney (principal); I10 Essential (primary) hypertension; F17.210 Nicotine dependence, cigarettes, uncomplicated; Z91.048 Other nonmedicinal substance allergy status; Z79.899 Other long term (current) drug therapy
CPT/HCPCS: 74176; 96374; 99284; A9270; J1885; J3490

== ENCOUNTER 2025-06-21 02:07 | Emergency (ER) | payer BC ==
[2025-06-21] MEDS ORDERED: Naloxone 0.4 MG/ML SDV IVPUSH PRN ×3 (02:10→02:47)
[2025-06-21] MEDS ORDERED: Sodium Chloride 0.9% 10 ML Syringe FLUSH PRN (02:10)
[2025-06-21] MEDS: Ondansetron 4 MG/2 ML SDV IVPUSH ONE (02:12)
[2025-06-21] MEDS: Ondansetron 4 MG/2 ML SDV ONE (02:16)
[2025-06-21 02:25] LABS: BASOPHILS ABSOLUTE AUTO 0.1 K/mm3 (0.0-0.2); BASOPHILS PERCENT AUTO 0.5 % (0.0-1.0); EOSINOPHILS ABSOLUTE AUTO 0.4 K/mm3 (0.0-0.4); EOSINOPHILS PERCENT AUTO 2.6 % (0.0-6.0); IMMATURE GRAN ABSOLUTE AUTO 0.04 K/mm3 (0.00-0.05); IMMATURE GRAN PERCENT AUTO 0.3 % (0.0-0.4); LYMPHOCYTES ABSOLUTE AUTO 5.3 K/mm3 (1.0-4.8); LYMPHOCYTES PERCENT AUTO 34.6 % (24.0-44.0); MEAN PLATELET VOLUME 8.7 fl (9.4-12.4); MONOCYTES ABSOLUTE AUTO 0.8 K/mm3 (0.0-0.8); MONOCYTES PERCENT AUTO 5.4 % (0.0-8.0); NEUTROPHILS ABSOLUTE AUTO 8.7 K/mm3 (1.8-7.7); NEUTROPHILS PERCENT AUTO 56.6 % (41.0-71.0); NRBC ABSOLUTE 0.00 (0.00-0.02); NRBC PERCENT 0.0 % (0.0-0.2); PLATELET COUNT,PLT 356 K/mm3 (150-400); RED BLOOD CELL COUNT 4.55 M/mm3 (4.52-5.90); WHITE BLOOD CELL COUNT,WBC 15.29 K/mm3 (3.9-11.3)
[2025-06-21 02:49] LABS: LACTIC ACID 1.9 mmol/L (0.4-2.0)
[2025-06-21 02:56] LABS: A/G RATIO 1.0 (1-2); ALANINE AMINOTRANSFERASE,ALT 27.0 U/L (16-63); ASPARTATE AMNIOTRANSFERASE,AST 17.0 U/L (15-37); BILIRUBIN TOTAL 0.2 mg/dL (0.2-1.0); BLOOD UREA NITROGEN,BUN 13.0 mg/dL (7-18); CARBON DIOXIDE,CO2 28.0 mEq/L (21-32); CHLORIDE,CL 105.0 mEq/L (98-107); CREATININE 0.9 mg/dL (0.7-1.3); EST CRCL DRUG DOSING (CG) 81.72 mL/min; ESTIMATED GFR 100.0 mL/min (>60); GLUCOSE RANDOM 127.0 mg/dL (70-99); POTASSIUM,K 3.8 mEq/L (3.5-5.1); PROTEIN TOTAL,TP 6.9 g/dl (6.4-8.2); SODIUM,NA 140.0 mEq/L (136-145)
[2025-06-21 03:00] LABS: ETHANOL BLOOD MEDICAL 0.0 gm% (0.00)
[2025-06-21] MEDS: Ketorolac 30 MG/ML SDV IVPUSH ONE (04:22)
[2025-06-21 05:06] LABS: BUPRENORPHINE SCREEN,URINE NEGATIVE (CUTOFF=10); METHADONE SCREEN, URINE NEGATIVE (CUT0FF=200); METHAMPHETAMINES SCREEN, URINE NEGATIVE (CUTOFF=500); OXYCODONE SCREEN,URINE NEGATIVE (CUT0FF=100); THC SCREEN,URINE 20 NG/ML NEGATIVE (CUTOFF=50)
[2025-06-21 05:13] LABS: AMPHETAMINES SCREEN, URINE PRESUMPTIVE POSITIVE (CUTOFF=500)
[2025-06-21 05:18] LABS: APPEARANCE,URINE CLEAR (Clear); GLUCOSE,URINE NEGATIVE (Negative); OCCULT BLOOD,URINE 2+ (Negative)
[2025-06-21 05:57] LABS: SQUAMOUS EPITHELIAL CELLS,UR 0-5 /hpf (0-5)
[2025-06-21 08:42] VITALS: BP 136/66; PULSE 69
== END 2025-06-21 07:09 | disposition home or self-care (01) ==
LOC: JD.ED 02:07
DX: N13.2 Hydronephrosis with renal and ureteral calculous obstruction (principal); I10 Essential (primary) hypertension; E78.00 Pure hypercholesterolemia, unspecified; Z79.899 Other long term (current) drug therapy; Z91.048 Other nonmedicinal substance allergy status
CPT/HCPCS: 36415; 74176; 76870; 80053; 80306; 80307; 81001; 83605; 83690; 85025; 93975; 96374; 96375; 99285; A9270; J1885; J2270; J2405; J7030; J1171